=== PATIENT | female | born 1970 | race African-American/Black ===

== ENCOUNTER 2019-12-26 19:03 | Emergency (ER) | payer MEDICAID ==
[~2019-12-26] VITALS: Ht 170.2 cm; Wt 118.0 kg
[2019-12-26] MEDS ORDERED: HYDROCODONE/ACETAMINOPHEN 5/325MG TABLET PO ONE (20:15)
[2019-12-26 21:10] LABS: HCG SCREEN NEGATIVE
[2019-12-26] MEDS ORDERED: IBUPROFEN 600MG TABLET PO ONE (22:45)
[2019-12-26 22:50] VITALS: BP 145/74
== END 2019-12-27 00:40 | disposition home or self-care (01) ==
LOC: ER 19:08
DX: R51 Headache (principal); R53.1 Weakness; R42 Dizziness and giddiness; I10 Essential (primary) hypertension
CPT/HCPCS: 72131; 73630; 84703; 99285

== ENCOUNTER 2022-05-12 05:16 | Emergency (ER) | payer MEDICAID, OTHER ==
[~2022-05-12] VITALS: Ht 167.6 cm; Wt 68.0 kg
[2022-05-12] MEDS ORDERED: PERM60CR4 PO (05:48)
[2022-05-12 06:40] VITALS: BP 140/82
== END 2022-05-12 06:50 | disposition home or self-care (01) ==
LOC: ER 05:16
DX: B86 Scabies (principal); B20 Human immunodeficiency virus [HIV] disease; I10 Essential (primary) hypertension
CPT/HCPCS: 99283

== ENCOUNTER 2023-04-02 11:33 | Emergency (ER) | payer MEDICAID ==
[~2023-04-02] VITALS: Ht 165.1 cm; Wt 73.0 kg
[~2023-04-02 11:33] MED LIST: PERM60CR4 PO
[2023-04-02 11:39] VITALS: BP 168/83; PULSE 92; RESP 16; TEMP 98.7; O2SAT 99
[2023-04-02] MEDS ORDERED: HYDR453.4 TP (18:14)
== END 2023-04-02 12:40 | disposition left against medical advice (07) ==
LOC: ER 11:38
DX: R52 Pain, unspecified (principal); Z53.21 Procedure and treatment not carried out due to patient leaving prior to being seen by health care provider
CPT/HCPCS: 99281; Z7610

== ENCOUNTER 2023-04-02 15:45 | Emergency (ER) | payer MEDICAID ==
[~2023-04-02] VITALS: Ht 165.1 cm; Wt 165.0 kg
[2023-04-02 16:13] VITALS: BP 156/80; PULSE 88; RESP 18; TEMP 98.7; O2SAT 100
[2023-04-02] MEDS ORDERED: HYDR453.4 TP (18:14)
== END 2023-04-02 17:42 | disposition home or self-care (01) ==
LOC: ER 15:45
DX: L50.9 Urticaria, unspecified (principal)
CPT/HCPCS: 99282

== ENCOUNTER 2023-09-13 19:58 | Emergency (ER) | payer MEDICAID ==
[~2023-09-13] VITALS: Ht 167.6 cm; Wt 68.0 kg
[~2023-09-13 19:58] MED LIST changes: +HYDR453.4 TP
[2023-09-13 20:04] VITALS: O2SAT 99
[2023-09-13] MEDS ORDERED: PERM60CR4 TP (21:18)
[2023-09-13] MEDS: SODIUM CHLORIDE 0.9% 1,000 ML IV ONE (21:22)
[2023-09-13] MEDS: FAMOTIDINE 20MG/2ML VIAL IV ONE (21:23)
[2023-09-13] MEDS: ONDANSETRON HCL 4MG/2ML INJ IV ONE (21:23)
[2023-09-13] MEDS: ACETAMINOPHEN 500MG TABLET PO NR (21:29)
[2023-09-13 21:39] VITALS: BP 132/62; PULSE 99; RESP 18; TEMP 98.5
== END 2023-09-13 21:43 | disposition home or self-care (01) ==
LOC: ER 19:58
DX: B86 Scabies (principal); R11.2 Nausea with vomiting, unspecified; I10 Essential (primary) hypertension
CPT/HCPCS: 99283; J7030

== ENCOUNTER 2023-09-25 18:48 | Emergency (ER) | payer MEDICAID ==
[~2023-09-25] VITALS: Ht 167.6 cm; Wt 68.0 kg
[~2023-09-25 18:48] MED LIST changes: +PERM60CR4 TP
[2023-09-25 18:51] VITALS: BP 170/82; PULSE 89; RESP 18; O2SAT 99
[2023-09-25] MEDS ORDERED: PERM60CR18 TP (19:43)
[2023-09-25] MEDS ORDERED: PERM60CR4 TP (19:43)
[2023-09-25 20:14] VITALS: TEMP 97.8
[2023-09-25] MEDS: SODIUM CHLORIDE 0.9% 10ML FLUSH IVF ONE (20:14)
[2023-09-25] MEDS: ACETAMINOPHEN 325MG TABLET PO ONE (20:14)
== END 2023-09-25 20:23 | disposition home or self-care (01) ==
LOC: ER 18:48
DX: B86 Scabies (principal); R21 Rash and other nonspecific skin eruption; I10 Essential (primary) hypertension; Z79.899 Other long term (current) drug therapy
CPT/HCPCS: 99283

== ENCOUNTER 2023-11-04 22:22 | Emergency (ER) | payer MEDICAID, OTHER ==
[~2023-11-04] VITALS: Ht 170.2 cm; Wt 85.0 kg
[~2023-11-04 22:22] MED LIST changes: +PERM60CR18 TP
[2023-11-04 22:27] VITALS: O2SAT 100
[2023-11-04] MEDS ORDERED: PERM60CR4 TP (23:27)
[2023-11-04] MEDS ORDERED: MUPI15CR11 TP (23:27)
[2023-11-04] MEDS: HYDRALAZINE HCL 25MG TABLET PO ONE (23:37)
[2023-11-04 23:40] VITALS: BP 169/96; PULSE 72; RESP 16; TEMP 97.5
[2023-11-04] MEDS ORDERED: AMLO5TAB88 MT (23:45)
== END 2023-11-05 00:05 | disposition home or self-care (01) ==
LOC: ER 22:22
DX: S00.06XA Insect bite (nonvenomous) of scalp, initial encounter (principal); I10 Essential (primary) hypertension; F12.10 Cannabis abuse, uncomplicated; F15.10 Other stimulant abuse, uncomplicated; Z79.899 Other long term (current) drug therapy; W57.XXXA Bitten or stung by nonvenomous insect and other nonvenomous arthropods, initial encounter; Y93.89 Activity, other specified; Y92.89 Other specified places as the place of occurrence of the external cause; Y99.8 Other external cause status
CPT/HCPCS: 99283

== ENCOUNTER 2024-02-14 11:57 | Emergency (ER) | payer MEDICAID ==
[~2024-02-14] VITALS: Ht 170.2 cm; Wt 80.0 kg
[~2024-02-14 11:57] MED LIST changes: +AMLO5TAB88 MT; +MUPI15CR11 TP
[2024-02-14 12:05] VITALS: O2SAT 97
[2024-02-14] MEDS ORDERED: KETOROLAC 30MG/ML VIAL IV STA (12:41)
[2024-02-14 13:39] LABS: BASOPHILS % 0.2 % (0.0-2.0); EOSINOPHILS % 0.6 % (0.0-5.0); HEMATOCRIT. 32.7 % (36.0-48.0); HEMOGLOBIN. 10.3 g/dL (12.0-16.0); LYMPHOCYTES % 28.9 % (20.0-50.0); MEAN CORPUSCULAR HEMOGLOBIN 26.9 pg (28.0-32.0); MEAN CORPUSCULAR HGB CONC 31.6 g/dL (31.0-37.0); MEAN CORPUSCULAR VOLUME 85.2 fL (81.0-99.0); MEAN PLATELET VOLUME 8.6 fl (7.4-10.4); NEUTROPHILS % 59.3 % (40.0-76.0); PLATELET 280 x1000/uL (130-400); RED BLOOD CELL COUNT 3.84 mill/uL (4.2-5.4); RED CELL DISTRIBUTION WIDTH 17.9 % (11.6-14.6); WHITE BLOOD COUNT 4.4 x1000/uL (4.5-11.0)
[2024-02-14 13:42] LABS: CHLORIDE 108 mEq/L (98-107); POTASSIUM 3.4 mEq/L (3.5-5.1); SODIUM 139 mEq/L (136-145)
[2024-02-14 13:43] LABS: CALCIUM 9.8 mg/dL (8.7-10.4); CARBON DIOXIDE 23 mEq/L (21-32)
[2024-02-14 13:48] LABS: CREATININE 1.1 mg/dL (0.6-1.0); GLUCOSE 181 mg/dL (70-105); UREA NITROGEN BLOOD 15 mg/dL (9-23)
[2024-02-14 13:50] LABS: CREATINE KINASE 289 IU/L (34-145)
[2024-02-14 14:02] LABS: ETHANOL BLOOD < 10 mg/dL (<10)
[2024-02-14 14:09] LABS: HCG SCREEN NEGATIVE
[2024-02-14] MEDS: KETOROLAC 30MG/ML VIAL IV NR (14:41)
[2024-02-14] MEDS: SODIUM CHLORIDE 0.9% 1,000 ML IV ONE (14:52)
[2024-02-14] MEDS: POTASSIUM CHLORIDE 20MEQ TABLET SR PO NR (14:53)
[2024-02-14] MEDS ORDERED: IBUP-2028 MT (15:49)
[2024-02-14 16:58] VITALS: BP 160/78; PULSE 80; RESP 18; TEMP 98.8; O2SAT 95
== END 2024-02-14 17:14 | disposition home or self-care (01) ==
LOC: ER 11:57
DX: M17.0 Bilateral primary osteoarthritis of knee (principal); R73.9 Hyperglycemia, unspecified; F12.90 Cannabis use, unspecified, uncomplicated; F15.90 Other stimulant use, unspecified, uncomplicated; F14.90 Cocaine use, unspecified, uncomplicated; I10 Essential (primary) hypertension; Z79.899 Other long term (current) drug therapy
CPT/HCPCS: 80048; 80320; 82550; 84703; 83735; 85025; 36415; 73562; 70450; 93970; 96361; 96374; 99285; J1885; J7030; G0480

== ENCOUNTER 2024-03-04 17:39 | Emergency (ER) | payer MEDICAID, OTHER ==
[~2024-03-04] VITALS: Ht 170.2 cm; Wt 80.0 kg
[~2024-03-04 17:39] MED LIST changes: +IBUP-2028 MT
[2024-03-04 17:41] VITALS: TEMP 98.3; O2SAT 98
[2024-03-04] MEDS ORDERED: IBUP-2029 MT (21:14)
[2024-03-04 21:53] VITALS: BP 167/64; PULSE 76; RESP 16
[2024-03-04] MEDS: KETOROLAC 30MG/ML VIAL IM ONE (21:53)
== END 2024-03-04 21:01 | disposition home or self-care (01) ==
LOC: ER 17:39
DX: M25.561 Pain in right knee (principal); I10 Essential (primary) hypertension; F14.10 Cocaine abuse, uncomplicated; F12.10 Cannabis abuse, uncomplicated; F15.10 Other stimulant abuse, uncomplicated; Z79.899 Other long term (current) drug therapy
CPT/HCPCS: 99283; 96372; J1885